=== PATIENT | male | born 1930 | race Caucasian/White ===

== ENCOUNTER → 2016-11-24 | Outpatient (CLI) | payer OTHER ==
[~2016-11-24] VITALS: Ht 172.7 cm; Wt 69.4 kg
[~2016-11-24] MED LIST: ACETAMINOPHEN325 M1 PO; AGGRENOX 25 MG1 EACH PO; AGGRENOX CAPSU1 EACH PO; ALLOPURINOL 10100 M1 PO; AREDS EYE VITAMIN PO; ASPIR 8181 MG PO; ASPIRIN EC81 M1 PO; ATORVASTATIN CA80 MG PO; AUGMENTIN 875-1 EACH PO; BENADRYL25 MG PO; BYSTOLIC 5 MG5 M1 PO; BYSTOLIC20 MG PO; CENTRUM SILVER1 EAC7 PO; FISH OIL 1,001000 M2 PO; FISH OIL SOFTG1 EACH PO; LISINOPRIL40 MG PO; MEDROL DOSPAK21 TAB PO; MULTI VITAMIN1 EACH PO; NORCO 5-325 TA1 EACH PO; NORVASC5 MG PO; PEPCID40 MG PO; PLAVIX 75 MG TA75 M1 PO; PRILOSEC 20 MG20 MG PO; PROSCAR 5MG TABL5 MG PO; PROTONIX40 M1 PO; TAMSULOSIN HCL0.4 M1 PO; TAMSULOSIN HCL0.4 MG PO; TRAMADOL 50 MG50 MG PO; TRICOR145 MG PO; VITAMIN B-12250 MCG PO; VITAMIN B-122500 MCG PO; VITAMIN D-32000 UNIT PO; VITAMIN D1000 UNI1 PO; ZOFRAN ODT4 MG PO
--- NOTE | ~2016-11-24 | S ---
[facility] [place] [address] SURGICAL PATH RPT PROCEDURE Name: ANDÉRS FERNANDEZ Room #: REG CL M.Mike.#: [id number] Admission: 11/24/16 Date of : 32 Discharge: Report #: [id number] Path Case #: [id number] PATHOLOGY REPORT COLLECTION DATE: 11/24/2016 RECEIVED DATE: 11/25/2016 SUBMITTING PHYS: Dr. Jose Vera OTHER PHYS: Dr. 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 - Negative for dysplasia or malignancy. - Squamous mucosa showing mild esophagitis. (IUV:csd; d/t: 11/28/2016) PATHOLOGIST: Carolina Jonas M.D. REPORT ELECTRONICALLY SIGNED BY: Carolina Jonas M.D. DATE/TIME: 11/28/2016 16:35 * * * * * * * * * * * * GROSS PATHOLOGY: Received in formalin labeled "Andrés FernandezJOCE," are five segments of vera soft tissue measuring 1.1 x 1.0 x 0.2 cm in aggregate dimensions and ranging from 0.3 to 0.5 cm in maximum dimension. The specimen is submitted entirely in cassette A1. (CAA; 11/25/2016) CLINICAL HISTORY: History of Helm's, R/O dysplasia INITIAL CPT CODE(S): A; 44595 Professional services performed by [facility] at [facility] [address], [place] [address] Technical services performed by [facility] at [address] [place] [id number]. [facility] [address] [place] [address] SURGICAL PATH RPT PROCEDURE Name: ANDRÉS FERNANDEZ Room #: REG RODDY Hu.#: [id number] Admission: 11/24/16 Date of : 31 Discharge: Report #: [id number] Path Case #: [id number] [facility] [address] [address] PHONE: [phone] DIRECTOR: Hola Reina M.D. * * * END OF REPORT * * *
--- NOTE | ~2016-11-24 | P ---
[facility] [place] [address] PROCEDURE REPORT Name: ESTEE FERNANDEZ Room #: REG [facility]#: [id number] Admission: 11/24/16 Attend Phys: Jose Vera MD Discharge: Date of : 31 Report #: [id number] THIS REPORT FOR: //name// CC: Abel Vera BRIEF HISTORY: The patient is an 86-year-old male with findings of Helm esophagus with ulceration about 6 months ago. He was placed on pantoprazole. Reflux symptoms are well controlled at this time. He presents for followup endoscopy to follow up the Helm, especially with the ulcers to exclude malignancy. PREOPERATIVE DIAGNOSIS: History of Helm's esophagus with ulceration. POSTOPERATIVE DIAGNOSES: 1. 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 2. Small hiatus hernia. 3. Erythematous gastritis. MEDICATIONS: Deep sedation with propofol per anesthesia. SPECIMENS: Biopsy of Helm's esophagus at the GE junction. ESTIMATED BLOOD LOSS: 3 mL. PROCEDURE: EGD with biopsy. FINDINGS: Prior to propofol sedation, procedure of upper endoscopy was discussed with the patient, as well as potential risks, benefits, and its complications. He indicates he understands and desires to proceed. DESCRIPTION OF PROCEDURE: With the patient in left lateral decubitus position, the Hongdianzhiboi video endoscope was inserted in to the cervical esophagus under direct vision without difficulty. Examination of this organ through its entire length revealed normal esophageal mucosa down to the squamocolumnar junction. Squamocolumnar junction was inspected and was noted to be slightly irregular. Findings are consistent with short segment of Helm's esophagus. Squamocolumnar junction was examined its entire course and no ulcerations were seen. The mucosa was flat. No raised lesions were seen. Biopsies were obtained. The scope was advanced in to the stomach, which was examined on end view, as well as retroflexed views. In the retroflexed position, a very small hiatus hernia was seen. No other lesions were seen. Examination of the distal stomach revealed an erythematous gastritis, which had been previously noted. No ulcers were seen. The pylorus, duodenal bulb, and postbulbar duodenal sweep were inspected and noted to be within normal limits. At that point, the scope was slowly withdrawn and careful circumferential views confirmed the above [facility] [address] [place] [address] PROCEDURE REPORT Name: REBECCAESTEE Pires [id number] Admission: 11/24/16 Attend Phys: Jose Vera MD Discharge: Date of : 31 Report #: [id number] findings. The patient tolerated the procedure well. CONDITION OF THE PATIENT UPON DISCHARGE: Following the procedure, the patient was drowsy, aroused, conversant, and will be discharged home when fully ambulatory. INSTRUCTIONS TO THE PATIENT AND FAMILY AT THE TIME OF DISCHARGE: We will follow up on biopsies and make further recommendations. Based on what I saw today, the ulceration has healed completely. At this point in time, he is not likely to benefit from continued routine surveillance of his Helm esophagus, unless dysplasia is found on today's biopsies. We will follow up and make further recommendations. Otherwise, he should see me in the office annually for followup of his reflux disease. <ELECTRONICALLY SIGNED> By: Jose Vera MD 11/25/16 0743 0923 1214 Jose Vera MD /nt
== END | disposition home or self-care (01) ==
LOC: GI 07:11
DX: K22.70 Barrett's esophagus without dysplasia (principal); K29.70 Gastritis, unspecified, without bleeding; K44.9 Diaphragmatic hernia without obstruction or gangrene
CPT/HCPCS: 62110; 62900

== ENCOUNTER 2017-03-18 19:59 | Inpatient (IN) | payer OTHER ==
[~2017-03-18] VITALS: Ht 170.2 cm; Wt 68.0 kg
--- NOTE | ~2017-03-18 | EKG ---
[place] [address] [facility] [place] [address] ELECTROCARDIOGRAM REPORT Name: ESTEE FERNANDEZ Room #: 463-P ADM IN M.R.#: [id number] Admission: 03/18/17 Attend Phys: Kimmie Cardoso Discharge: Date of : 31 Report #: [id number] THIS REPORT FOR: //name// [facility] ED Test Date: 2017-03-18 Test Time: 20:52:15 Pat Name: ESTEE FERNANDEZ Department: Room: 46 Gender: M [employer]visor [employer]: : 1930 Requested By: Merritt Mak Order Number: [id number] MD: Masood Rosas Measurements Intervals [place] Rate: 66 P: 28 TN: 214 QRS: -3 QRSD: 85 T: 27 QT: 389 QTc: 408 Interpretive Statements Sinus rhythm with first-degree AV block Borderline prolonged TN interval Probable left atrial enlargement Compared to ECG 04/07/2014 09:26:03 no significant change was found Electronically Signed On 03-20-2017 9:18:35 CDT by Masood Rosas [email or web address] <ELECTRONICALLY SIGNED> By: Masood Rosas MD, [facility] 03/20/17917 51 51 Masood Rosas MD, [facility] /EPI
--- NOTE | ~2017-03-18 | 2DMMODE ---
[facility] [address] [place] [address] 2 D/M-MODE ECHOCARDIOGRAM Name: ESTEE FERNANDEZ Room #: 463-P ADM IN M.R.#: [id number] Admission: 03/18/17 Attend Phys: Kimmie Dobson Discharge: Date of : 31 Date of Service: 03/20/17 1135 Report #: [id number] THIS REPORT FOR: //name// APPROVED REPORT Study performed: 03/20/2017 09:52:12 EXAM: Comprehensive 2D, Doppler, and color-flow Echocardiogram Patient Location: Echo lab Room #: 463 Status: routine Other Information Study Quality: Good Indications CVA/TIA Hx: TIA's, SC, stents, HLP, HTN 2D Dimensions RVDd: 39.87 mm LVEF(%): 61.18 (>50%) IVSd: 11.79 (7-11mm) LVOT Diam: 22.43 (18-24mm) LVDd: 44.13 mm PWd: 11.39 (7-11mm) Ascending Ao: 35.39 (22-36mm) LVDs: 29.75 (25-40mm) Aortic Root: 34.89 mm Galvan's LVEF: 61.18 % Volumes Left Atrial Volume (Systole) Single Plane 4CH: 57.98 mL Single Plane 2CH: 61.85 mL LA ESV Index: 36.00 mL/m2 Aortic Valve AoV Peak Ajit.: 1.26 m/s AO Peak Gr.: 6.32 mmHg LVOT Max P.78 mmHg LVOT Max V: 1.09 m/s LATRICIA Vmax: 3.44 cm2 Mitral Valve E/A Ratio: 0.8 MV Decel. Time: 257.09 ms MV E Max Ajit.: 0.89 m/s MV A Ajit.: 1.10 m/s MV PHT: 74.56 ms [facility] [place] [address] 2 D/M-MODE ECHOCARDIOGRAM Name: REBECCAESTEE Pires Room #: 463-P [facility] IN .R.#: [id number] Admission: 03/18/17 Attend Phys: Kimmie Dobson Discharge: Date of : 31 Date of Service: 03/20/17 1135 Report #: [id number] IVRT: 83.04 ms Pulmonary Valve PV Peak Ajit.: 0.88 m/s PV Peak Gr.: 3.07 mmHg Pulmonary Vein P Vein S: 0.49 m/s P Vein A: 0.29 m/s P Vein D: 0.34 m/s P Vein A Dur.: 110.7 msec P Vein S/D Ratio: 1.44 Tricuspid Valve TR Peak Ajit.: 2.69 m/s RAP Estimate: 5.00 mmHg TR Peak Gr.: 29.03 mmHg PA Pressure: 34.00 mmHg Left Ventricle The left ventricle is normal size. There is normal LV segmental wall motion. Mild concentric left ventricular hypertrophy. Left ventricular systolic function is normal. LVEF is 60%. Mild diastolic dysfunction is present (impaired relaxation pattern). Right Ventricle The right ventricle is normal size. The right ventricular systolic function is normal. Atria Left atrium is mildly dilated. No evidence of shunt with color doppler. Negative bubble study was done in 2013. Right atrium is at the upper limits of normal. Aortic Valve Aortic valve is mildly calcified. No aortic regurgitation is present. There is no aortic valvular stenosis. Mitral Valve The mitral valve is normal in structure. Moderate mitral annular calcification. Mild mitral regurgitation. Tricuspid Valve The tricuspid valve is normal in structure. There is mild tricuspid regurgitation. The right atrial pressure is estimated at 5 mmHg. There is mild pulmonary hypertension with an estimated PAP of 34mmHg. Great Vessels The aortic root is normal in size. The ascending aorta is normal in [facility] [address] [place] [address] 2 D/M-MODE ECHOCARDIOGRAM Name: ESTEE FERNANDEZ Room #: 463-P [facility] IN M.R.#: [id number] Admission: 03/18/17 Attend Phys: Kimmie Dobson Discharge: Date of : 31 Date of Service: 03/20/17 1135 Report #: [id number] size. IVC is normal in size and collapses >50% with inspiration. Pericardium There is no pericardial effusion. <Conclusion> The left ventricle is normal size. Mild concentric left ventricular hypertrophy. Left ventricular systolic function is normal. Mild diastolic dysfunction is present (impaired relaxation pattern). The right ventricle is normal size. Left atrium is mildly dilated. Aortic valve is mildly calcified. There is no aortic valvular stenosis. The mitral valve is normal in structure. Moderate mitral annular calcification. Mild mitral regurgitation. There is mild tricuspid regurgitation. The right atrial pressure is estimated at 5 mmHg. There is mild pulmonary hypertension with an estimated PAP of 34mmHg. <ELECTRONICALLY SIGNED> By: Hosea Conner MD 03/20/17 1135 1135 1135 Hosea Conner MD /INF
[2017-03-18 19:59] VITALS: BP 166/80
[2017-03-18 20:49] LABS: ABSOLUTE NEUTROPHILS 3.8 thou/uL (1.4-8.2); BASOPHILS 0.9 % (0.0-2.0); HEMATOCRIT 40.8 % (42.0-52.0); HEMOGLOBIN 13.9 gm/dL (14.0-18.0); LYMPHOCYTES 24.6 % (24.0-44.0); MCH 32.6 pg (26.0-34.0); MCHC 34.2 g/dL (28.0-37.0); MCV 95.4 fL (80.0-100.0); PLATELET COUNT 163 thou/uL (150-400); POLYS 61.5 % (36.0-66.0); RBC 4.28 mil/uL (4.50-6.00); RDW 13.3 % (10.5-14.5); WBC 6.1 thou/uL (4.0-11.0)
[2017-03-18 20:51] LABS: MANUAL DIFF NO
[2017-03-18 20:58] LABS: ANION GAP 12 mmol/L (7-16); BUN 29 mg/dL (7-18); CHLORIDE 105 mmol/L (98-107); CO2 25 mmol/L (21-32); CREATININE 1.4 mg/dL (0.7-1.3); GLUCOSE 136 mg/dL (74-106); POTASSIUM 4.3 mmol/L (3.5-5.1); SODIUM 142 mmol/L (136-145)
[2017-03-18 21:03] LABS: APTT 25.2 Seconds (24.5-32.8); PROTIME 10.4 Seconds (9.3-11.4)
[2017-03-18 21:05] LABS: ALBUMIN 3.9 g/dL (3.4-5.0); ALKALINE PHOSPHATASE 118 U/L (46-116); MAGNESIUM 1.7 mg/dL (1.8-2.4); SGOT 27 U/L (15-37); SGPT 45 U/L (30-65); TOTAL BILIRUBIN 0.3 mg/dL (<0.1-1.0); TOTAL PROTEIN 7.2 g/dL (6.4-8.2); TROPONIN-I < 0.04 ng/mL (<0.04-0.07)
[2017-03-18 21:30] VITALS: BP 168/72
[2017-03-18 21:38] LABS: CHOLESTEROL 125 mg/dL (<200); HDL CHOLESTEROL 40 mg/dL (>40); LDL CHOLESTEROL 25 mg/dL (<100); SERUM ASSESSMENT Slight Lipemia; TC:HDL 3.1 Ratio (Not establshd); TRIGLYCERIDE 301 mg/dL (<150); VLDL 60 mg/dL (<40)
[2017-03-18 21:48] VITALS: BP 207/98
[2017-03-18 21:50] LABS: URINE BILIRUBIN NEGATIVE (Negative); URINE BLOOD 2+ (Negative); URINE COLOR YELLOW; URINE GLUCOSE-RANDOM* NEGATIVE (Negative); URINE KETONES NEGATIVE (Negative); URINE NITRITE NEGATIVE (Negative); URINE PROTEIN (DIPSTICK) NEGATIVE (Negative); URINE UROBILINOGEN 0.2 E.U./dl (0.2-1.0)
[2017-03-18 21:56] LABS: AMP/METHAMP Negative (Negative); BARBITURATES Negative (Negative); BENZODIAZEPINES Negative (Negative); COCAINE Negative (Negative); METHADONE Negative (Negative); OPIATES Negative (Negative); PCP Negative (Negative); THC Negative (Negative)
[2017-03-18 22:06] LABS: BACTERIA None Seen /HPF (None Seen); CASTS None Seen /LPF (None Seen); CRYSTALS None Seen /LPF (None Seen); SQUAMOUS None Seen /LPF (0-3); URINE WBC None Seen /HPF (0-5)
[2017-03-18] MEDS ORDERED: FLOMAX0.4 MG PO (22:07)
[2017-03-19 00:40] VITALS: BP 158/82
[2017-03-19 05:33] VITALS: BP 158/78
[2017-03-19 07:28] VITALS: BP 178/80
[2017-03-19 12:09] VITALS: BP 180/84
[2017-03-19 16:12] VITALS: BP 165/87
[2017-03-19 20:24] VITALS: BP 175/84
[2017-03-20 04:00] VITALS: BP 170/80
[2017-03-20 07:57] VITALS: BP 173/83
[2017-03-20 11:52] VITALS: BP 189/91
[2017-03-20 13:17] VITALS: BP 189/91
== END 2017-03-20 14:16 | disposition home or self-care (01) | DRG 69 ==
LOC: ER 19:59 → EROBS 20:56 → 4W 20:56
PROVIDERS: Emergency Medicine; Hospitalist
DX: G45.9 Transient cerebral ischemic attack, unspecified (principal); I10 Essential (primary) hypertension; E78.00 Pure hypercholesterolemia, unspecified; M10.9 Gout, unspecified; E78.5 Hyperlipidemia, unspecified; I25.10 Atherosclerotic heart disease of native coronary artery without angina pectoris; N40.0 Benign prostatic hyperplasia without lower urinary tract symptoms; H35.30 Unspecified macular degeneration; K21.9 Gastro-esophageal reflux disease without esophagitis; Z90.49 Acquired absence of other specified parts of digestive tract; Z85.038 Personal history of other malignant neoplasm of large intestine; I25.2 Old myocardial infarction; Z95.5 Presence of coronary angioplasty implant and graft; Z86.73 Personal history of transient ischemic attack (TIA), and cerebral infarction without residual deficits; Z79.02 Long term (current) use of antithrombotics/antiplatelets; Z79.82 Long term (current) use of aspirin; Z79.899 Other long term (current) drug therapy
CPT/HCPCS: 10047

== ENCOUNTER 2018-02-10 09:58 | Emergency (ER) | payer OTHER ==
[~2018-02-10] VITALS: Ht 170.2 cm; Wt 74.8 kg
[~2018-02-10 09:58] MED LIST changes: +FLOMAX0.4 MG PO
== END 2018-02-10 10:30 | disposition home or self-care (01) ==
LOC: ER 09:58
DX: S90.861A Insect bite (nonvenomous), right foot, initial encounter (principal); R23.8 Other skin changes; W57.XXXA Bitten or stung by nonvenomous insect and other nonvenomous arthropods, initial encounter; Y93.89 Activity, other specified; Y92.89 Other specified places as the place of occurrence of the external cause; Y99.8 Other external cause status; I10 Essential (primary) hypertension; E78.00 Pure hypercholesterolemia, unspecified; N40.0 Benign prostatic hyperplasia without lower urinary tract symptoms; M10.9 Gout, unspecified; K21.9 Gastro-esophageal reflux disease without esophagitis; I25.2 Old myocardial infarction; Z85.038 Personal history of other malignant neoplasm of large intestine

== ENCOUNTER → 2018-02-13 | Outpatient (CLI) | payer OTHER ==
[~2018-02-13] MED LIST changes: +KEFLEX500 M1 PO
== END ==
LOC: HYPER 06:48
DX: S91.301A Unspecified open wound, right foot, initial encounter (principal); S90.861A Insect bite (nonvenomous), right foot, initial encounter; I10 Essential (primary) hypertension; I25.10 Atherosclerotic heart disease of native coronary artery without angina pectoris; E78.00 Pure hypercholesterolemia, unspecified; K21.9 Gastro-esophageal reflux disease without esophagitis; Z85.038 Personal history of other malignant neoplasm of large intestine; Z86.73 Personal history of transient ischemic attack (TIA), and cerebral infarction without residual deficits; X58.XXXA Exposure to other specified factors, initial encounter; Y93.89 Activity, other specified; Y92.89 Other specified places as the place of occurrence of the external cause; Y99.8 Other external cause status

== ENCOUNTER 2018-02-14 06:33 | Inpatient (IN) | payer OTHER ==
[~2018-02-14] VITALS: Ht 170.2 cm; Wt 65.0 kg
--- NOTE | ~2018-02-14 | P ---
[facility] [place] [address] PROCEDURE REPORT Name: ESTEE FERNANDEZ Room #: 201-P [facility] IN ..#: [id number] Admission: 02/15/18 Attend Phys: Nadir Schrader MD Discharge: 02/16/18 Date of : 31 Report #: [id number] THIS REPORT FOR: //name// CC: Abel Schrader PREOPERATIVE DIAGNOSIS: Sick sinus syndrome. POSTOPERATIVE DIAGNOSIS: Sick sinus syndrome. HISTORY OF PRESENT ILLNESS: The patient is an 87-year-old male with history of prior TIA status post implantable loop recorder insertion. He recently had a presyncopal episode with evidence of a 7 second pause on his LINQ. The patient requires beta vinita therapy long-term. I have recommended dual chamber pacemaker insertion. ANESTHESIA: The patient underwent MAC anesthesia with no anesthesia related complications. DESCRIPTION OF PROCEDURE: The patient underwent informed consent. We discussed the details of the procedure including the risks, which include but not limited to bleeding, infection, vascular damage, cardiac perforation, pneumothorax. He understood these risks and is willing to proceed. As such, he was brought to the EP laboratory in a fasting and unsedated state, prepped and draped in a sterile fashion, received IV antibiotics prior to initiation of the procedure. A venogram was performed showing patency of the left axillary vein. Next, I injected 20 mL of lidocaine below the level of left clavicle. Incision was made, pocket was created over the prepectoral fascia. Access was obtained twice to left axillary vein using the extrathoracic approach with sheath positioned using the modified Seldinger technique. Under fluoroscopy, leads were positioned into the right ventricular apex and right atrial appendage both with adequate pacing and sensing thresholds. The leads were sutured to the prepectoral fascia. The device was connected to the pacemaker, placed in the pocket and tested and found to be functioning normally. The pocket was irrigated with vancomycin and the pocket was closed in 3 layers using 2-0 for the deep layer, 3-0 for the mid layer, 4-0 for the subcuticular. Surgical glue was placed to the outer skin layer. Implantable loop recorder removal: The [employer]onic implantable loop recorder was then removed. Lidocaine was injected at the incision site. A small incision was made over the device and the device was removed with forceps. A single layer of suture was used to close the small incision and Steri-Strip was placed on the skin. The implanted pacemaker is [employer], model #[id number], serial #[id number]. This was an MRI compatible device given the patient's history of prior transient [address] [address] PROCEDURE REPORT Name: ESTEE FERNANDEZ Room #: 201-P [facility] IN ..#: [id number] Admission: 02/15/18 Attend Phys: Nadir Schrader MD Discharge: 02/16/18 Date of : 31 Report #: [id number] ischemic attack. The atrial lead was a [employer], model #[id number], 52 cm, serial # [id number] with a P-wave of 3.2 millivolts, pacing impedance of 534 ohms and a pacing threshold of 0.5 volts at 0.4 milliseconds. RV lead was [employer] model #[id number], 58 cm, serial #[id number] with a R-wave of 11.2 millivolts, pacing impedance of 806 ohms and pacing threshold 0.9 volts at 0.4 milliseconds. The device was programmed to DDDR 60-130 mode. CONCLUSIONS: 1. Successful dual-chamber pacemaker implantation. 2. Satisfactory atrial and ventricular pacing and sensing thresholds. 3. Successful explantation of implantable loop recorder. <ELECTRONICALLY SIGNED> By: Nadir Schrader MD 02/16/18 1534 0948 1301 Nadir Schrader MD /nt
[~2018-02-14 06:33] MED LIST changes: -KEFLEX500 M1 PO
[2018-02-14] MEDS ORDERED: KEFLEX500 M1 PO (06:59)
[2018-02-14 07:15] VITALS: BP 160/74
[2018-02-14 07:25] LABS: ABSOLUTE NEUTROPHILS 4.1 thou/uL (1.4-8.2); BASOPHILS 0.8 % (0.0-2.0); EOSINOPHILS 4.8 % (0.0-3.0); HEMATOCRIT 41.1 % (42.0-52.0); HEMOGLOBIN 13.8 gm/dL (14.0-18.0); LYMPHOCYTES 18.9 % (24.0-44.0); MCH 32.4 pg (26.0-34.0); MCHC 33.7 g/dL (28.0-37.0); MCV 96.3 fL (80.0-100.0); MONOCYTES 11.4 % (1.0-8.0); PLATELET COUNT 189 thou/uL (150-400); POLYS 64.1 % (36.0-66.0); RBC 4.27 mil/uL (4.50-6.00); RDW 14.1 % (10.5-14.5); WBC 6.5 thou/uL (4.0-11.0)
[2018-02-14 07:35] LABS: CALCIUM 9.8 mg/dL (8.5-10.1); CREATININE 1.3 mg/dL (0.7-1.3); POTASSIUM 4.1 mmol/L (3.5-5.1)
[2018-02-14 07:36] LABS: APTT 25.9 Seconds (24.5-32.8); PROTIME 10.6 Seconds (9.3-11.4)
[2018-02-14 11:42] VITALS: BP 172/88
[2018-02-14 15:14] VITALS: BP 172/88
[2018-02-14 18:50] LABS: URINE BILIRUBIN NEGATIVE (Negative); URINE BLOOD 3+ (Negative); URINE CLARITY CLEAR; URINE COLOR YELLOW; URINE GLUCOSE-RANDOM* NEGATIVE (Negative); URINE KETONES NEGATIVE (Negative); URINE LEUKOCYTES NEGATIVE (Negative); URINE NITRITE NEGATIVE (Negative); URINE PROTEIN (DIPSTICK) TRACE (Negative); URINE UROBILINOGEN 0.2 E.U./dl (0.2-1.0)
[2018-02-14 19:03] LABS: BACTERIA None Seen /HPF (None Seen); CASTS None Seen /LPF (None Seen); CRYSTALS None Seen /LPF (None Seen); MUCUS 0-3 Light strn/LPF (None Seen); SQUAMOUS None Seen /LPF (0-3); URINE RBC >20 Many /HPF (0-2); URINE WBC 0-5 Rare /HPF (0-5)
[2018-02-14 19:21] VITALS: BP 167/79
[2018-02-15] VITALS (9 sets, daily range): BP systolic 118–151; BP diastolic 60–85
[2018-02-15 11:34] LABS: CALCIUM 9.5 mg/dL (8.5-10.1); CREATININE 1.2 mg/dL (0.7-1.3); POTASSIUM 4.3 mmol/L (3.5-5.1)
[2018-02-16 04:55] VITALS: BP 121/68
[2018-02-16 05:12] LABS: ABSOLUTE NEUTROPHILS 5.9 thou/uL (1.4-8.2); BASOPHILS 0.4 % (0.0-2.0); EOSINOPHILS 4.5 % (0.0-3.0); HEMATOCRIT 38.3 % (42.0-52.0); HEMOGLOBIN 13.1 gm/dL (14.0-18.0); LYMPHOCYTES 15.2 % (24.0-44.0); MCH 32.7 pg (26.0-34.0); MCHC 34.2 g/dL (28.0-37.0); MCV 95.6 fL (80.0-100.0); MONOCYTES 11.3 % (1.0-8.0); PLATELET COUNT 166 thou/uL (150-400); POLYS 68.6 % (36.0-66.0); RDW 13.5 % (10.5-14.5); WBC 8.6 thou/uL (4.0-11.0)
[2018-02-16 05:19] LABS: CALCIUM 9.4 mg/dL (8.5-10.1); CREATININE 1.4 mg/dL (0.7-1.3); POTASSIUM 4.1 mmol/L (3.5-5.1)
[2018-02-16 07:25] VITALS: BP 139/77
[2018-02-16] MEDS ORDERED: ASPIR 8181 MG PO (08:39)
[2018-02-16] MEDS ORDERED: PLAVIX 75 MG TA75 M1 PO (08:39)
[2018-02-16 10:07] VITALS: BP 139/77
[2018-02-16 11:36] VITALS: BP 139/77
[2018-02-16 12:13] LABS: TSH 1.535 uIU/mL (0.358-3.740)
[2018-02-16 12:59] LABS: FOLIC ACID 32.8 ng/mL (8.6-58.9)
== END 2018-02-16 10:15 | disposition home or self-care (01) | DRG 242 ==
LOC: CATH 06:33 → 2N 06:46 → CATH 14:24 → 2N 02-15 14:44 → ENTRNSPT 02-16 10:13 → 2N 02-16 10:15 → EDTRNSPTSTS 02-16 10:16
PROVIDERS: Hospitalist; Internal Medicine Cardiovascular Disease
PROC: 0JH606Z Insertion of Pacemaker, Dual Chamber into Chest Subcutaneous Tissue and Fascia, Open Approach (ICD-10-PCS; principal; 2018-02-14)
PROC: 02H63JZ Insertion of Pacemaker Lead into Right Atrium, Percutaneous Approach (ICD-10-PCS; principal; 2018-02-14)
PROC: 02HK3JZ Insertion of Pacemaker Lead into Right Ventricle, Percutaneous Approach (ICD-10-PCS; principal; 2018-02-14)
PROC: B51NZZZ Fluoroscopy of Left Upper Extremity Veins (ICD-10-PCS; principal; 2018-02-14)
DX: I49.5 Sick sinus syndrome (principal); E43 Unspecified severe protein-calorie malnutrition; N13.8 Other obstructive and reflux uropathy; I10 Essential (primary) hypertension; E78.00 Pure hypercholesterolemia, unspecified; K21.9 Gastro-esophageal reflux disease without esophagitis; M10.9 Gout, unspecified; N40.1 Benign prostatic hyperplasia with lower urinary tract symptoms; R33.9 Retention of urine, unspecified; I25.10 Atherosclerotic heart disease of native coronary artery without angina pectoris; Z90.49 Acquired absence of other specified parts of digestive tract; Z85.038 Personal history of other malignant neoplasm of large intestine; I25.2 Old myocardial infarction; Z95.5 Presence of coronary angioplasty implant and graft; Z86.73 Personal history of transient ischemic attack (TIA), and cerebral infarction without residual deficits; Z79.82 Long term (current) use of aspirin; Z79.899 Other long term (current) drug therapy; Z82.49 Family history of ischemic heart disease and other diseases of the circulatory system; Z88.8 Allergy status to other drugs, medicaments and biological substances
CPT/HCPCS: 10081; 62110; 62900; 70005

== ENCOUNTER → 2018-02-20 | Outpatient (CLI) | payer OTHER ==
[~2018-02-20] MED LIST changes: +KEFLEX500 M1 PO
== END ==
LOC: HYPER 07:06
DX: S81.801D Unspecified open wound, right lower leg, subsequent encounter (principal); S90.861D Insect bite (nonvenomous), right foot, subsequent encounter; I10 Essential (primary) hypertension; I25.10 Atherosclerotic heart disease of native coronary artery without angina pectoris; E78.00 Pure hypercholesterolemia, unspecified; K21.9 Gastro-esophageal reflux disease without esophagitis; Z86.73 Personal history of transient ischemic attack (TIA), and cerebral infarction without residual deficits; Z85.038 Personal history of other malignant neoplasm of large intestine; X58.XXXD Exposure to other specified factors, subsequent encounter

== ENCOUNTER 2018-05-03 19:14 | Emergency (ER) | payer OTHER ==
[~2018-05-03] VITALS: Ht 172.7 cm; Wt 69.8 kg
[2018-05-03] MEDS ORDERED: XARELTO15 MG PO (19:55)
[2018-05-03] MEDS ORDERED: FISH OIL 1,001000 M2 PO (19:56)
[2018-05-03] MEDS ORDERED: MEDROLDOSEPACK PO (20:52)
[2018-05-03 21:14] VITALS: BP 134/64
== END 2018-05-03 21:15 | disposition home or self-care (01) ==
LOC: ER 19:14
DX: L50.9 Urticaria, unspecified (principal); I10 Essential (primary) hypertension; E78.00 Pure hypercholesterolemia, unspecified; H35.30 Unspecified macular degeneration; K21.9 Gastro-esophageal reflux disease without esophagitis; M10.9 Gout, unspecified; I25.10 Atherosclerotic heart disease of native coronary artery without angina pectoris; Z90.49 Acquired absence of other specified parts of digestive tract; Z86.73 Personal history of transient ischemic attack (TIA), and cerebral infarction without residual deficits; Z85.038 Personal history of other malignant neoplasm of large intestine; Z95.5 Presence of coronary angioplasty implant and graft

== ENCOUNTER → 2018-08-22 | Outpatient (CLI) | payer OTHER ==
[~2018-08-22] MED LIST changes: +MEDROLDOSEPACK PO; +XARELTO15 MG PO
[2018-08-22 10:55] LABS: CREATININE 1.5 mg/dL (0.7-1.3)
== END ==
LOC: MRI 10:00
PROVIDERS: Psychiatry & Neurology Neurology
DX: I67.82 Cerebral ischemia (principal); G31.9 Degenerative disease of nervous system, unspecified; J32.2 Chronic ethmoidal sinusitis; R29.818 Other symptoms and signs involving the nervous system; R29.898 Other symptoms and signs involving the musculoskeletal system

== ENCOUNTER 2020-01-16 06:52 | Day surgery (SDC) | payer OTHER ==
[~2020-01-16] VITALS: Ht 172.7 cm; Wt 69.4 kg
--- NOTE | ~2020-01-16 | O ---
[facility] [place] [address] OPERATIVE REPORT Name: LAVERN FERNANDEZ Room #: 150-5 [facility] M.R.#: [id number] Admission: 01/16/20 Attend Phys: Andrés Barrow MD Discharge: Date of : 31 Report #: [id number] THIS REPORT FOR: cc: Abel Zabala MD, David A. 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 PROCEDURE: Excision of lesion of left lower lid with myocutaneous flap repair of defect, transconjunctival left lower lid and cheek lift by myocutaneous flap. SURGEON: Andrés Barrow MD. AD OPERATIONS INTERN: None. ANESTHESIA: MAC. COMPLICATIONS: None. INDICATIONS FOR SURGERY: This pleasant 89-year-old gentleman has what appears to be a sudoriferous inclusion cyst directly inferior and medial to his inferior punctum. This distorts his eyelid margin drawing the punctum out of the tear cervantes in inducing epiphora. In addition, he has a left lower lid ectropion independent of the lesion. He presents today for excision of the lesion with repair of that defect along with a transconjunctival lower lid and cheek lift in order to improve his lid globe apposition. Informed consent was obtained to include but not limited to the potential risk for loss of vision, bleeding, infection, failure to improve the problem, the potential need for further surgery. DESCRIPTION OF PROCEDURE: The patient was taken to the operating room where 2% Xylocaine with epinephrine mixed with equal parts 0.75% Marcaine with Wydase was administered transcutaneously and transconjunctivally to the left lower lid, the left medial canthus, the left cheek, the left lateral canthus and the infratemporal fossa. The patient was subsequently prepped and draped in the [address] [address] OPERATIVE REPORT Name: LAVERN FERNANDEZ Room #: 150-5 [facility] M.R.#: [id number] Admission: 01/16/20 Attend Phys: Andrés Barrow MD Discharge: Date of : 31 Report #: [id number] usual sterile fashion. The left lower lid was then inspected and the lesion was outlined. Incisions were then made with a Venita scissor and the dissection carried down through the skin and orbicularis muscle to ensure that the entire cyst wall was excised. The canalicular epithelium was visualized during the dissection, but it was not violated. The lesion was passed off the field for permanent histopathologic analysis. A myocutaneous flap was then developed laterally to be rotated into this position and correct the lower lid defect. The flap was advanced and secured with interrupted 6-0 plain gut sutures after hemostasis had been achieved with monopolar cautery. A transconjunctival incision was then made below the inferior border of the tarsal plate. Hemostasis was then re-achieved. The dissection was then carried out into the premalar tissues of the lower lid and cheek. Hemostasis was once again re-achieved. The dissection was accomplished primarily using sharp techniques. The lower lid and cheek were then elevated and resuspended with interrupted mattress 5-0 chromic sutures. The lower lid and cheek elevated well. The wounds were then cleaned and dressed with erythromycin ophthalmic ointment. The patient subsequently transported to the recovery area having tolerated the procedure well with no anesthetic or operative complications being noted. By: 0932 0945 Andrés Barrow MD /nt
[2020-01-16 09:03] VITALS: BP 128/70
--- NOTE | 2020-01-17 15:08 | PATH ---
[facility] [address] [place] [address] PATHOLOGY RPT PROCEDURE Name: LAVERN CORONEL Room #: DEP [facility] M.R.#: [id number] Admission: 01/16/20 Date of : 31 Discharge: 01/16/20 Report #: [id number] Path Case #: [id number] [facility] Accession Number: [id number] . 01 Material submitted: . lid - LEFT LOWER LID LESION. Modifiers: left, lower . 01 Clinical history: . Lesion . 02 Diagnosis: Left lower lid lesion, excision: - Eccrine hidrocystoma. - Negative for malignancy. - Overlying squamous epithelium showing reactive changes. (IUV:cogeneration technician; 01/17/2020) MBR 01/17/2020 1358 Local . 02 Electronically signed: . Carolina Jonas MD, Pathologist NPI- [id number] . 01 Gross description: . The specimen is received in formalin, labeled "Lavern Coronel, left lower lid lesion". Received is a cystic-like segment of pale vera possible skin measuring 0.3 cm maximum dimensions. The surgical margin is inked. The specimen is submitted intact in cassette A1. (CAA; 01/16/2020) QAC/QAC 01/16/2020 1733 Local . 02 Pathologist provided ICD-10: D23.122 . 02 CPT . 113749 Specimen Comment: A courtesy copy of this report has been sent to [phone], [phone] Specimen Comment: [phone] Specimen Comment: Report sent to / DR BROWNING Performed at: [address], [place] [id number] MD Alexandru La MD Phone: [phone] Performed at: [address] [id number] MD Carolina Jonas MD Phone: [phone]
== END 2020-01-16 10:20 | disposition home or self-care (01) ==
LOC: OR 06:52 → TBA 06:53 → OR 08:41
DX: D23.122 Other benign neoplasm of skin of left lower eyelid, including canthus (principal); H02.105 Unspecified ectropion of left lower eyelid; H02.535 Eyelid retraction left lower eyelid; H02.205 Unspecified lagophthalmos left lower eyelid; I10 Essential (primary) hypertension; E78.5 Hyperlipidemia, unspecified; E78.00 Pure hypercholesterolemia, unspecified; N40.0 Benign prostatic hyperplasia without lower urinary tract symptoms; M10.9 Gout, unspecified; I25.2 Old myocardial infarction; Z98.890 Other specified postprocedural states; Z79.899 Other long term (current) drug therapy; Z95.0 Presence of cardiac pacemaker; Z86.73 Personal history of transient ischemic attack (TIA), and cerebral infarction without residual deficits; Z85.038 Personal history of other malignant neoplasm of large intestine; Z90.49 Acquired absence of other specified parts of digestive tract
CPT/HCPCS: 50010; 50101; 50386; 50398; 51636; 56531; 62110; 62850; 70005

== ENCOUNTER → 2020-03-17 | Outpatient (CLI) | payer OTHER | LOC: SJCVCIMAG 09:14 | PROVIDERS: ATTEND Internal Medicine Cardiovascular Disease | DX: Z45.018 Encounter for adjustment and management of other part of cardiac pacemaker (principal); I08.3 Combined rheumatic disorders of mitral, aortic and tricuspid valves; I27.20 Pulmonary hypertension, unspecified; I65.23 Occlusion and stenosis of bilateral carotid arteries; I11.9 Hypertensive heart disease without heart failure; I25.10 Atherosclerotic heart disease of native coronary artery without angina pectoris; I49.5 Sick sinus syndrome; I48.0 Paroxysmal atrial fibrillation; E78.00 Pure hypercholesterolemia, unspecified; Z82.49 Family history of ischemic heart disease and other diseases of the circulatory system; Z86.73 Personal history of transient ischemic attack (TIA), and cerebral infarction without residual deficits; Z79.899 Other long term (current) drug therapy ==

== ENCOUNTER → 2020-10-08 | Outpatient (CLI) | payer OTHER | LOC: SJCVC 13:15 | PROVIDERS: ATTEND Internal Medicine Cardiovascular Disease | DX: I25.10 Atherosclerotic heart disease of native coronary artery without angina pectoris (principal); E78.00 Pure hypercholesterolemia, unspecified; I65.23 Occlusion and stenosis of bilateral carotid arteries; I49.5 Sick sinus syndrome; I48.0 Paroxysmal atrial fibrillation; I10 Essential (primary) hypertension; D69.59 Other secondary thrombocytopenia; Z90.49 Acquired absence of other specified parts of digestive tract; Z98.890 Other specified postprocedural states; Z95.0 Presence of cardiac pacemaker; Z88.8 Allergy status to other drugs, medicaments and biological substances; Z79.899 Other long term (current) drug therapy; Z86.16 Personal history of COVID-19; Z86.73 Personal history of transient ischemic attack (TIA), and cerebral infarction without residual deficits ==